=== PATIENT | male | born 2005 | race Caucasian/White ===

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

== ENCOUNTER 2024-05-09 08:58 | Day surgery (SDC) | payer OTHER ==
[~2024-05-09] VITALS: Ht 180.3 cm; Wt 58.7 kg
[~2024-05-09 08:58] MED LIST changes: +Lactated Ringer's 1,000 ML IV ONE; +propofoL 50 ML IV ONE
[2024-05-09] MEDS ORDERED: BUDESONIDE-FO10.2 G3 (09:36)
[2024-05-09] MEDS ORDERED: OMEP20ER (09:37)
[2024-05-09] MEDS ORDERED: Lactated Ringer's 1,000 ML IV ONE (09:59)
[2024-05-09 11:00] VITALS: BP 106/68
== END 2024-05-09 10:59 | disposition home or self-care (01) ==
LOC: ORSCSDS 08:58
PROVIDERS: Internal Medicine Gastroenterology
PROC: 0DJ08ZZ Inspection of Upper Intestinal Tract, Via Natural or Artificial Opening Endoscopic (ICD-10-PCS; principal; 2024-05-09 10:15)
DX: R13.10 Dysphagia, unspecified (principal); R10.13 Epigastric pain; K21.9 Gastro-esophageal reflux disease without esophagitis; R11.2 Nausea with vomiting, unspecified; R63.4 Abnormal weight loss; J45.909 Unspecified asthma, uncomplicated; F17.210 Nicotine dependence, cigarettes, uncomplicated; Z79.899 Other long term (current) drug therapy
CPT/HCPCS: J2704; J7120